=== PATIENT | female | born 1955 | race Caucasian/White ===

== ENCOUNTER 2020-04-06 03:28 | Emergency (ER) | payer BC, SELFPAY ==
--- NOTE | 2020-04-06 03:30 | XR_ITS ---
WS: [id number] RIGHT FOOT: 3 VIEW(S) TECHNIQUE: AP, oblique and lateral. HISTORY: injury COMPARISON: None available. Acute nondisplaced fracture through the posterior calcaneus. There is an additional oblique fracture through the distal fibula. Additional small avulsion fractures at the medial malleolus. Normal tarsal/metatarsal alignment. Extensive soft tissue edema around the hindfoot and ankle. XR/XR foot RT min 3V* [id number] IMPRESSION: 1. Nondisplaced oblique fracture distal fibula. 2. Nondisplaced fracture distal calcaneus and small avulsion fractures from th e medial malleolus.
[2020-04-06 03:33] VITALS: BP 135/86; PULSE 79; RESP 17; TEMP 36.7; O2SAT 97; BMI 33.3
--- NOTE | 2020-04-06 03:37 | XR_ITS ---
WS: [id number] RIGHT ANKLE: 3 VIEW(S) TECHNIQUE: AP, oblique(s) and lateral. HISTORY: injury COMPARISON: None available. Nondisplaced oblique fracture distal fibula with adjacent large amount of soft tissue edema. Tiny avu lsion fractures the medial malleolus. There is an additional lucency through the calcaneus which is p robably a fracture also. Small joint effusion. Mild widening of the ankle mortise. Extensive soft tissue edema. Small calcaneal spur with possible fracture through the base of the spur . XR/XR ankle RT min 3V* [id number] IMPRESSION: 1. Nondisplaced oblique fracture distal fibula. 2. Small avulsion fractures of medial malleolus. 3. Highly suspicious for calcaneal fracture. 4. Large amount of soft tissue edema surrounding the ankle. 5. Mild widening of the medial ankle mortise.
--- NOTE | 2020-04-06 03:40 | W.ED.EXTPRO ---
HPI - Extremity Problem General: Chief complaint: Extremity Injury, Lower Stated complaint: r foot injury Time Seen by Provider: 04/06/20 03:31 Source: patient Mode of arrival: ambulatory Limitations: no limitations History of Present Illness: HPI Narrative: 64-year-old female who states she was playing in [place] with her grandson yesterday at roughly 6 PM jumped out of the tube and twisted her ankle and felt a pop. She states she has had right lateral ankle pain since then. States the pain is worsened and is sharp. She has had swelling and is unable to bear weight. She has been icing it. Denies any knee pain. Denies any other injuries. MD Complaint: extremity pain Associated symptoms: Deny chest pain, fever(s) or rash Review of Systems Const: Denies: fever(s), chills, body aches or change in appetite Eyes: Denies: blurry vision or eye discomfort ENMT: Denies: throat pain or dental pain Card: Denies: chest pain Resp: Denies: dyspnea GI: Denies: abdominal pain, nausea, vomiting or diarrhea : Denies: dysuria Musc: Reports: joint pain and joint swelling Skin/Breast: Denies: rash Neuro: Denies: headache(s) Psych: Denies: depression Tereso/Lymph: Denies: easy bruising All/Imm: Denies: urticaria Physical Exam Const: COMMON NORMALS: no acute distress, patient oriented x3 and healthy appearing HENMT: COMMON NORMALS: normocephalic and atraumatic HEAD & SCALP: normocephalic and atraumatic Eye: COMMON NORMALS: Equal, round and reactive pupils present and EOMs intact bilaterally PUPIL: Yes Equal, round and reactive pupils present Neck/C-Spine: COMMON NORMALS: full ROM and supple Chest: COMMONS NORMALS: normal inspection of the chest and normal palpation of entire chest wall Resp: COMMON NORMALS: normal respiratory effort, No retractions, No use of accessory muscles and clear to auscultation bilaterally AUSCULTATION: clear to auscultation bilaterally Cardio: COMMON NORMALS: regular rate, regular rhythm and No murmurs present (Cardio) RATE: regular rate RHYTHM: regular rhythm GI: COMMON NORMALS: Normal to inspection, nondistended, normoactive bowel sounds present, Soft to palpation, non-tender and no masses PALPATION: Yes Soft to palpation Extremity: COMMON NORMALS: full ROM NARRATIVE EXTREMITY EXAM: tenderness and swelling to right lateral ankle Neuro: COMMON NORMALS: patient oriented x3, moves all extremities and no focal motor deficits Psych: COMMON NORMALS: mental status grossly normal, Normal thought process present and cooperative THOUGHT PROCESS: Normal thought process present Skin: COMMON NORMALS: no rashes or lesions noted and no wounds GENERAL SKIN EXAM: no rashes or lesions noted Course Vital Signs: Vital signs: Vital Signs Temperature 98.0 F 04/06/20 03:33 Pulse Rate 79 04/06/20 03:33 Respiratory Rate 17 04/06/20 03:33 Blood Pressure 135/86 04/06/20 03:33 Pulse Oximetry 97 04/06/20 03:33 MDM - Extremity (Nontraumatic) MDM Narrative: Medical decision making narrative: Patient presents with a distal fibula fracture to her ankle. Patient was placed in a splint and crutches. She is to follow-up with Dr. Vicente in 2 to 4 days and is to return if worsening. Imaging Data^: X-ray right ankle: Attestation: I personally reviewed and interpreted this imaging study as follows: My impression: Distal fibula fracture Discharge Plan Discharge Patient Disposition: Home, Self-Care Clinical Impression: Fracture of distal end of fibula Qualifiers: Encounter type: initial encounter Fracture type: closed Fracture morphology: other fracture Laterality: right Qualified Code(s): S82.831A - Other fracture of upper and lower end of right fibula, initial encounter for closed fracture Condition: Stable Prescriptions: [place] 5-325 mg tablet 1 tab PO Q6H PRN (Reason: pain) Qty: 14 RF: 0 Discharge Orders: Discharge Order (Routine); Ordered 04/06/20 Ordered By: Cata Melendez Referrals: Marcell Amaya DO [Primary Care Provider] - Amado Vicente DPM [Physician] - 1-3 days Discharge Diet: Advance as tolerated Discharge Activity: Resume usual activity Patient Instructions: Ankle Fracture (ED) Coding Level of Care Code ED Chief Specialist Leed for [facility]erg Fwd Exam Comprehensive
[2020-04-06] MEDS: HYDROcodone-acetaminophen 5-325 mg Tablet 1 TAB PO (03:49)
--- NOTE | 2020-04-06 08:45 | DCPLANNER ---
manager target had message to schedule a follow up appointment for patient with ortho. manager target called the ortho clinic, spoke with Mirian, gave clinic patients information. manager target was told that patients information would be printed and reviewed. Clinic will call patient with appointment information.
--- NOTE | 2020-04-07 12:11 | DCPLANNER ---
Patient had a follow up appointment scheduled for 04.07.20 with ortho. Patient did attend the appointment.
== END 2020-04-06 04:25 | disposition home or self-care (01) ==
PROVIDERS: Emergency Provider Emergency Medicine; PCP Electrodiagnostic Medicine
DX: S82.831A Other fracture of upper and lower end of right fibula, initial encounter for closed fracture (principal); X50.1XXA Overexertion from prolonged static or awkward postures, initial encounter
CPT/HCPCS: 12345; 29515; 73610; 73630; 99281; 99283

== ENCOUNTER 2020-04-07 11:27 | Outpatient (CLI) | payer BC, SELFPAY | END 2020-04-07 11:28 | disposition home or self-care (01) | LOC: SPT 11:30 | PROVIDERS: PCP Electrodiagnostic Medicine; Visit Provider Podiatrist Foot & Ankle Surgery | DX: Z47.89 Encounter for other orthopedic aftercare (principal); S82.891D Other fracture of right lower leg, subsequent encounter for closed fracture with routine healing; X58.XXXD Exposure to other specified factors, subsequent encounter | CPT/HCPCS: 97760; L4361 ==

== ENCOUNTER 2020-04-10 05:35 | Day surgery (SDC) | payer BC, SELFPAY ==
[2020-04-07 12:07] VITALS: BMI 33.3
--- NOTE | 2020-04-07 12:27 | P.ANESASSM_ITS ---
Pre-Anesthetic Assessment Pre-Anesthetic Assessment: Height/Weight: Height 1.65 m Weight 90.718 kg Preop Diagnosis: Right bimalleolar ankle fracture Proposed Procedure: Operation Date: 04/10/20 08:30 Proposed Procedures p ORIF bimalleolar Ankle 02822 S82.839A(Right) - Amado Vicente DPM Familial anesthetic complications: None Social: Social History: No alcohol and No tobacco Exam: Pre-Anes Outpt Exam: alert, oriented x 3, clear to auscultation sameera aterally and regular rate & rhythm Airway: Cervical ROM: WNL MP: 3 Dentition: Partials Pulmonary: Pulmonary: None reported CV/HEM: CV/HEM: HTN : : None reported Hepatic: Hepatic: None reported Musc/skel: Comments: L ankle fracture Neuropsych: Neuropsych: None reported Anesthetic Plan: ASA status: 2 Anesthesia: General and Regional (specify below) (popliteal) Risk of > 500 ml blood loss (7ml/kg in children): No PFSH Anesthesia PFSH: Family History (Updated 04/07/20 @ 10:22 by Simi Frances LPN) Father Diabetes Social History (Updated 04/07/20 @ 10:22 by Simi Frances LPN) Smoking and tobacco status: never smoked Alcohol intake: never Current occupational status: retired Female Reproductive History: Date of last menstrual period: 09/18/89 Data Anesthesia Cardiac Studies: No Data to Display
[2020-04-09 06:59] LABS: Coronavirus Lab Test PTC NOT DETECTED
--- NOTE | 2020-04-10 | SCC_ITS ---
1.7 seconds of fluoroscopic guidance, for a cumulative dose of 0.356 mGy, was provided to Dr. Vicente by the radiology department. C-arm images of the RIGHT ankle were saved for the patient's permanent record. [facility]
--- NOTE | 2020-04-10 | XR_ITS ---
WS: [id number] C-ARM RADIOGRAPHS RIGHT ANKLE; 3 IMAGES HISTORY: ORIF RIGHT BIMALLEOLAR ANKLE COMPARISON: 04/06/2020 Intraoperative fixation plate and screw distal fibula. Fibular fracture in good position and alignmen t. XR/XR ankle RT min 3V* [id number] IMPRESSION: Intraoperative ORIF distal fibular fracture.
[2020-04-10 05:42] VITALS: BP 117/86; PULSE 75; RESP 18; TEMP 36.4; O2SAT 97
[2020-04-10] MEDS: sodium chloride 0.9% 1,000 ML 30 ML IV (05:52)
--- NOTE | 2020-04-10 06:12 | W.PM.OPSUD ---
Surgery/Procedure H&P Update DATE OF PROCEDURE: April 10, 2020 DATE H&P PERFORMED: 04/07/20 H&P UPDATE INFORMATION: I have reviewed H&P completed within last 30 days, I have examined patient prior to procedure, No changes to prior documentation and H&P is in [facility] [place] on date indicated PREOP DIAGNOSIS: Right bimalleolar ankle fracture PLANNED PROCEDURE: Operation Date: 04/10/20 08:30 Proposed Procedures p ORIF bimalleolar Ankle 90794 S82.839A(Right) - Amado Vicente DPM
--- NOTE | 2020-04-10 06:46 | P.ANESUD_ITS ---
Pre-Anesthetic Update Pre-Anesthetic Assessment: Date of Surgery/Procedure: 04/10/20 Preop Concha gnosis: Right bimalleolar ankle fracture Proposed Procedure: Operation Date: 04/10/20 08:30 Proposed Procedures p ORIF bimalleolar Ankle 51701 S82.839A(Right) - Amado Vicente DPM Any changes to Pre-Anesthetic Assessment?: No Last Intake: Intake Last Liquid Date 04/10/20 Last Liquid Time 04:30 Last Solid Date 04/09/20 Last Solid Time 19:30 Labs Last 48hrs: Laboratory Results - last 48 hr 04/07/20 12:12 Nasal/Oral COVID-1 9 PCR Not detected Vitals: Temperature 97.6 F 04/10/20 05:42 Temperature Source Temporal Artery S can 04/10/20 05:42 Pulse Rate 75 04/10/20 05:42 Respiratory Rate 18 04/10/20 05:42 Blood Pressure 117/86 04/10/20 05:42 Blood Pressure Harmony n 96 04/10/20 05:42 Pulse Oximetry 97 04/10/20 05:42 Oxygen Delivery Me thod 04/10/20 05:42 Exam: Pre-Anes Outpt Exam: alert, oriented x 3, clear to auscultation bilaterally and regular rate & rhythm Cardiac Studies: No Data to Display
--- NOTE | 2020-04-10 06:46 | ANES.PROC ---
Anesthesia Procedures Procedure/Date: 04/10/20 Nerve Block ^: Nerve Block 1: Main Anesthesia: general anesthesia Time Out Performed: Yes Consent: requested by attending/covering physician, from patient, risks and benefits reviewed and patient agrees to proceed Nerve block location: popliteal (R) Anesthesia monitors applied: pulse oximetry and oxygen Anesthetic Used: ropivicaine 0.5% and with decadron (4 mg) Amount of anesthesia used (mL): 30 Ultrasound used to: recognize landmarks Nerve Stimulator Used?: No Interscalene/Femoral BLK: 4 stimuplex 21 g needle used for position and inplane approach, visualize local anesthetic spread and no vascular puncture identified Injection: neg aspiration of heme Patient Tolerated Procedure: well Complications: none
[2020-04-10] MEDS: midazolam 1 mg/mL INJ 2 mL 2 MG IVP (07:05)
[2020-04-10 08:08] VITALS: BP 111/77; PULSE 94; RESP 16; TEMP 36.8; O2SAT 100
[2020-04-10 08:15] VITALS: BP 116/75; PULSE 80; RESP 17; O2SAT 99
[2020-04-10 08:20] VITALS: BP 114/76; PULSE 83; RESP 15; TEMP 36.8; O2SAT 98
[2020-04-10 08:25] VITALS: BP 124/71; PULSE 77; RESP 16; TEMP 36.6; O2SAT 95
[2020-04-10 08:40] VITALS: BP 118/72; PULSE 78; RESP 16; TEMP 36.6; O2SAT 96
--- NOTE | 2020-04-10 15:51 | P.OP_ITS ---
Operative Report Date of procedure: April 10, 2020 Pre-op Diagnosis: Right bimalleolar ankle fracture Post-op diagnosis: same Post-op Findings: Right bimalleolar ankle fracture equivalent. Procedure Done: Open reduction internal fixation right bimalleolar ankle fracture CPT code 23667 Implants: 2-0 Vicryl. 4-0 Vicryl. Skin ismael. Eddie anatomical fibular plate. Total of 8 Eddie cortical screws. Pathology: none sent Surgeon: Amado Vicente D.P.M. Senior Ui Web Developer: Ami Martínez Jesse Anesthesia: General Estimated blood loss: Less than 10 mL Tourniquet time: See intraoperative documentation. IV fluids: None Urine output: None Complications: None Findings: Sukhjinder Parsons B fracture right fibula with avulsion fracture on the medial malleolus. No syndesmotic disruption appreciated with cotton hook test. Condition: stable Disposition: PACU Brief History: Patient is a pleasant 64-year-old female sustained a right bimalleolar ankle fracture inversion twisting type fall. Sukhjinder Parsons B fracture with medial gutter widening recommended anatomical reduction and open fixation of a fibular fractur. Patient is agreeable. I discussed benefits of surgery allowing anatomical reduction with rigid internal fixation and early range of motion of her ankle fracture. Risks include pain, bleeding, numbness, infection, bruising, swelling, surgical site dehiscence, hardware failure, delayed union, malunion, DVT, PE, heart attack, stroke. Also there is a high likelihood of posttraumatic arthritis in the future to her right ankle with or without surgery. Patient is agreeable and wishes to proceed. Procedure: Under mild sedation the patient was brought to the operating room and placed on the operating table in supine position. A timeout was performed. Anesthesia started by the anesthesia service. Preoperatively popliteal block was performed per anesthesia service. Once anesthesia had been induced a saphenous nerve block utilizing 0.5% Marcaine plain 5 cc at the right distal leg. A well-padded pneumatic tourniquet was applied high calf to the patient's right lower extremity. The right lower extremity was then scrubbed, prepped utilizing normal aseptic technique. Attention was directed to the lateral aspect of the right ankle, the lateral malleolus was palpated and identified as well as the fibular shaft. Through skin with dissection carried down bluntly utilizing curved Gamez scissors down to the level of periosteum. Care was taken to retract and preserve neurovascular and tendinous structures. All bleeders were ligated and cauterized as necessary. Periosteal incision was made to be left from the distal approximately. Oblique fracture was appreciated and distracted this was evacuated of its hematoma with a bone curette and flushed with saline solution. Realizing traction bone reduction tenaculums the fracture was reduced out to length, reduction was performed in all 3 cardinal planes and noted to be adequate for early held utilizing the bone point to point forceps. Next utilizing standard AO technique anatomical fibular plate was utilized to fixate the fracture with excellent bony plate interface, total of 8 screws were utilized combination of locking and nonlocking with 4 screws distal and 4 screws proximal to the fracture. Temporary fixation was removed. Intraoperative fluoroscopy confirmed placement of orthopedic hardware and reduction of fibular fracture in the AP view, mortise view and lateral views. Incision site was flushed with copious amounts of sterile saline solution. Periosteum was closed utilizing 2-0 Vicryl. 4-0 Vicryl reapproximated with ismael. Incision site was dressed with Adaptic 4 x 4's Kerlix wrap. Deflated and a prompt hyperemic response was noted to the distal digits of the right foot. Patient tolerated the procedure well and was transferred to the PACU with vital signs stable and vascular status intact. Also a cam boot was applied with ankle in neutral position. Following a period of postoperative monitoring she will be discharged home strict nonweightbearing the right lower extremity. She has a knee scooter. He was given instructions dressings clean, dry and intact and elevate her right foot while at rest. Will have a follow-up at 9:30 AM April 17, 2020 for nursing visit and dressing change. Prescribed Percocet 10/325 mg to be taken judiciously as needed every 4 hours for pain total of 30 tablets dispensed to her pharmacy in [facility]. Contact me with postoperative questions or concerns.
== END 2020-04-10 09:00 | disposition home or self-care (01) ==
PROVIDERS: PCP Electrodiagnostic Medicine; Visit Provider Podiatrist Foot & Ankle Surgery
PROC: (CPT 27814; principal; 2020-04-10 07:00)
DX: S82.841A Displaced bimalleolar fracture of right lower leg, initial encounter for closed fracture (principal); X50.1XXA Overexertion from prolonged static or awkward postures, initial encounter; I10 Essential (primary) hypertension; Z79.891 Long term (current) use of opiate analgesic
CPT/HCPCS: 27814; 12345; 73610; 76000; 87635; 96374; C1713; J0690; J1100; J2250; J2704; J2795; J3010; J3490; J7030

== ENCOUNTER → 2020-04-30 13:31 | Outpatient (BNVA) | payer BC, SELFPAY | PROVIDERS: PCP Electrodiagnostic Medicine; Visit Provider Podiatrist Foot & Ankle Surgery | DX: Z48.89 Encounter for other specified surgical aftercare (principal) | CPT/HCPCS: 73610 ==

== ENCOUNTER → 2020-05-21 14:24 | Outpatient (BNVA) | payer BC, SELFPAY | PROVIDERS: PCP Electrodiagnostic Medicine; Visit Provider Podiatrist Foot & Ankle Surgery | DX: Z47.89 Encounter for other orthopedic aftercare (principal); S82.841D Displaced bimalleolar fracture of right lower leg, subsequent encounter for closed fracture with routine healing; W19.XXXD Unspecified fall, subsequent encounter | CPT/HCPCS: 73610 ==

== ENCOUNTER → 2025-02-11 10:43 | Outpatient (BNVA) | payer MEDICARE, SELFPAY | PROVIDERS: PCP Nurse Practitioner Family; Visit Provider Orthopaedic Surgery | DX: S46.212A Strain of muscle, fascia and tendon of other parts of biceps, left arm, initial encounter (principal); X50.0XXA Overexertion from strenuous movement or load, initial encounter | CPT/HCPCS: 99204 ==

== ENCOUNTER 2025-02-12 16:30 | Outpatient (CLI) | payer MEDICARE, SELFPAY ==
--- NOTE | 2025-02-12 16:45 | MR_ITS ---
WS: [id number] MRI LEFT SHOULDER NONCONTRAST TECHNIQUE: Sagittal T2, coronal T1, T2 and proton density imaging. Axial gradient PDE imaging. CLINICAL INFORMATION: Possible bicep tendon rupture COMPARISON: None. FINDINGS: Advanced arthritis AC joint fluid and edema. Mild synovial thickening. Small amount of subacromial subdeltoid fluid. Moderate narrowing of the subacromial space with downsloping of the type II acromion. Subacromial spurring with impingement on the rotator cuff. Chronic thinning of the supraspinatus and infraspinatus. Tendinopathy supraspinatus and infraspinatus. Small partial interstitial tears involving the distal supraspinatus and infraspinatus. No tendon retraction. Tiny insertional tear infraspinatus. Normal teres minor. Biceps tendon is absent from the bicipital groove. Subscapularis tendon appears intact. Small amount of subcoracoid fluid. Small intra-articular biceps tendon. MR/MR shoulder LT wo con* [id number] IMPRESSION: 1. Advanced arthritis AC joint with moderate narrowing of the subacromial spac e. Impingement on the distal supraspinatus and infraspinatus with subacromial s purring. 2. Chronic thinning of the supraspinatus and infraspinatus with small intersti tial tears and tendinopathy. No tendon retraction. Small insertional tear infra spinatus. 3. Teres minor and subscapularis appear intact. 4. Biceps tendon is absent from the bicipital groove presumably chronically to rn. Small intra-articular biceps tendon..
== END 2025-02-12 16:31 | disposition home or self-care (01) ==
PROVIDERS: PCP Nurse Practitioner Family; Visit Provider Orthopaedic Surgery
DX: S46.212A Strain of muscle, fascia and tendon of other parts of biceps, left arm, initial encounter (principal); M19.012 Primary osteoarthritis, left shoulder; M75.42 Impingement syndrome of left shoulder; M75.102 Unspecified rotator cuff tear or rupture of left shoulder, not specified as traumatic; M67.814 Other specified disorders of tendon, left shoulder; X58.XXXA Exposure to other specified factors, initial encounter; R93.7 Abnormal findings on diagnostic imaging of other parts of musculoskeletal system
CPT/HCPCS: 73221

== ENCOUNTER → 2025-02-14 08:08 | Outpatient (BNVA) | payer MEDICARE, SELFPAY | PROVIDERS: PCP Nurse Practitioner Family; Visit Provider Orthopaedic Surgery | DX: S46.212A Strain of muscle, fascia and tendon of other parts of biceps, left arm, initial encounter (principal); M75.102 Unspecified rotator cuff tear or rupture of left shoulder, not specified as traumatic; M12.812 Other specific arthropathies, not elsewhere classified, left shoulder; X58.XXXA Exposure to other specified factors, initial encounter | CPT/HCPCS: 99213 ==

== ENCOUNTER 2025-02-17 09:42 | Outpatient (CLI) | payer MEDICARE, SELFPAY ==
--- NOTE | 2025-02-17 09:50 | USCV_ITS ---
Ludmila Arvizu Age: 69 Gender: F : 1955 Exam Date: 02/17/2025 10:21 Ordering Phys: Minna Zhang APRN, APRN Technologist: LADI [place] [facility] [place]: Cardiomegaly BP: 111 / 63 HR: 82 Rhythm: Sinus Technical Quality: Adequate MEASUREMENTS (Male / Female) Normal Values 2D ECHO LV Diastolic Diameter PLAX 6.0 cm 4.2 - 5.9 / 3.9 - 5.3 cm IVS Diastolic Thickness 0.7 cm 0.6 - 1.0 / 0.6 - 0.9 cm IVS Systolic Thickness 0.9 cm LVPW Diastolic Thickness 1.2 cm 0.6 - 1.0 / 0.6 - 0.9 cm LVPW Systolic Thickness 1.8 cm LVOT Diameter 2.0 cm LV Ejection Fraction 2D Teich 45.1 % LV Ejection Fraction MOD 4C 50.4 % LV Ejection Fraction MOD 2C 34.1 % LV Ejection Fraction 2C AL 34.6 % LA Diameter 4.0 cm RA Systolic Volume 4C AL 39.4 ml RA Systolic Volume 4C MOD 38.9 ml LA Sys Volume AL 74.4 cm cubed LA Sys Volume Index AL 38.9 cm cubed/m squared Aorta at Sinotubular Diameter 2.6 cm IVC Diameter 1.8 cm M-MODE LA Ao Ratio MM 1.6 AV Cusp Separation MM 1.9 cm DOPPLER AV Peak Velocity 105.0 cm/s LVOT Peak Velocity 84.0 cm/s AV Area Cont Eq vti 2.4 cm squared AV Area Cont Eq pk 2.6 cm squared MV Peak Velocity 91.0 cm/s MV Area PHT 5.2 cm squared Mitral E to A Ratio 0.7 TR Peak Velocity 75.0 cm/s TR Peak Gradient 2.3 mmHg TV Peak E Velocity 66.0 cm/s PV Peak Velocity 107.0 cm/s FINDINGS Left Ventricle Left ventricle is dilated. LV systolic function is moderately reduced with EF of 35 - 40%. Moderate global hypokinesis. Grade 1 diastolic dysfunction Right Ventricle Normal in size and function Right Atrium Normal in size Left Atrium Dilated Mitral Valve Structurally normal mitral valve. Trace mitral regurgitation Aortic Valve Structurally normal aortic valve. No significant stenosis or regurgitation Tricuspid Valve Insufficient TR jet to evaluate RVSP. Pulmonic Valve Not well visualized Pericardium Small pericardial effusion. Aorta Normal in size IVC Not well visualized CONCLUSIONS Left ventricle is dilated. LV systolic function is moderately reduced with EF of 35 to 40%. Grade 1 diastolic dysfunction. Left atrial dilation. Trace mitral regurgitation No comparison studies are available. Tristin Fuentes MD (Electronically Signed) Final Date: 18 February 2025 09:07 S
== END 2025-02-17 09:43 | disposition home or self-care (01) ==
PROVIDERS: PCP Nurse Practitioner Family; Visit Provider Nurse Practitioner Family
DX: I51.7 Cardiomegaly (principal); R93.1 Abnormal findings on diagnostic imaging of heart and coronary circulation; I31.39 Other pericardial effusion (noninflammatory)
CPT/HCPCS: 93306

== ENCOUNTER → 2025-02-18 15:55 | Outpatient (BNVA) | payer MEDICARE, SELFPAY | PROVIDERS: PCP Nurse Practitioner Family; Referring Provider Orthopaedic Surgery; Visit Provider Internal Medicine | DX: Z01.818 Encounter for other preprocedural examination (principal); S46.219A Strain of muscle, fascia and tendon of other parts of biceps, unspecified arm, initial encounter; Y99.9 Unspecified external cause status; I11.0 Hypertensive heart disease with heart failure; I50.9 Heart failure, unspecified; Z87.891 Personal history of nicotine dependence; R07.9 Chest pain, unspecified | CPT/HCPCS: 93005; 99204 ==

== ENCOUNTER 2025-02-19 09:43 | Day surgery (SDC) | payer MEDICARE, SELFPAY ==
[2025-02-19] VITALS (12 sets, daily range): BP systolic 111–141; BP diastolic 60–102; PULSE 56–95; RESP 16–18; TEMP 36.1–36.6; O2SAT 92–100; BMI 27.4
[2025-02-19] MEDS: sodium chloride 0.9% 1,000 ML 30 ML IV (10:20)
--- NOTE | 2025-02-19 11:56 | ANES.PROC ---
Anesthesia Procedures Procedure/Date: 02/19/25 Nerve Block ^: Nerve Block 1: Main Anesthesia: other (100mcg fentanyl) Time Out Performed: Yes Consent: requested by attending/covering physician and from patient Nerve block location: interscalene Anesthesia monitors applied: pulse oximetry, EKG, BP cuff and oxygen Nerve block position: supine Anesthetic Used: ropivicaine 0.5% Amount of anesthesia used (mL): 25 Ultrasound used to: recognize landmarks Nerve Stimulator Used?: Yes Interscalene/Femoral BLK: other needle (pjunk 4inch) Injection: neg aspiration of heme Patient Tolerated Procedure: well Complications: none Additional Comments: decadron 4mg added to block
--- NOTE | 2025-02-19 11:58 | W.PM.OPSUD ---
Surgery/Procedure H&P Update DATE OF PROCEDURE: February 19, 2025 DATE H&P PERFORMED: 02/14/25 H&P UPDATE INFORMATION: I have reviewed H&P completed within last 30 days, I have examined patient prior to procedure and No changes to prior documentation PREOP DIAGNOSIS: Ruptured left biceps tendon PLANNED PROCEDURE: Operation Date: 02/19/25 11:30 Proposed Procedures p Biceps Tendon Repair(Left) - Jason Bettencourt MD s POSSIBLE Rotator Cuff Repair - Open(Left) - Jason Bettencourt MD s Left Shoulder Acromioplasty(Left) - Jason Bettencourt MD
--- NOTE | 2025-02-19 12:10 | PC.NURSE ---
1149- time out done for block. 25 ml ropivicaine used. pt monitored during procedure. pt mary well
[2025-02-19] MEDS: ceFAZolin 2,000 mg SDV 2000 MG IVP (12:38)
--- NOTE | 2025-02-19 13:51 | ANES.PREANE2 ---
Pre-Anesthetic Assessment Height/Weight: Height 5 ft 6 in Weight 170 lb Temp Pulse Resp BP Pulse Ox O2 Del Method 97 F L 56 L 18 125/101 96 Room Air 02/19/25 10:09 02/19/25 10:09 02/19/25 10:09 02/19/25 10:09 02/19/25 10:09 02/19/25 10:30 Preop Diagnosis: Ruptured left biceps tendon Operation Date: 02/19/25 11:30 Proposed Procedures p Biceps Tendon Repair(Left) - Jason Bettencourt MD s POSSIBLE Rotator Cuff Repair - Open(Left) - Jason Bettencourt MD s Left Shoulder Acromioplasty(Left) - Jason Bettencourt MD Was Beta Cynthia taken within 24 hours: N/A Was Clonidine taken within 24 hours: N/A Last intake: Intake Last Liquid Date 02/18/25 Last Liquid Time 22:00 Last Solid Date 02/18/25 Last Solid Time 17:00 Social No alcohol and No tobacco Exam alert, oriented x 3, clear to auscultation bilaterally and regular rate & rhythm Airway Submandibular: within normal limits Cervical ROM: within normal limits Mallampati: Class III Anesthetic Plan ASA status: 3 Anesthesia: Regional (specify below) Other: No prior issues with anesthesia NPO since yesterday evening Patient has a CHF history, EF of 35 to 40%. Patient states that she gets around well without shortness of breath. Able to climb 2 flights of stairs Patient is on lisinopril for hypertension Plan for general anesthesia with preop nerve block Medications/Allergies Home Medications ?Medication ?Instructions ?Recorded ?Confirmed ?Last Taken ?Type lisinopril 5 mg tablet 5 mg PO DAILY 04/07/20 02/18/25 02/18/25 History nitroglycerin 0.4 mg sublingual 4 mg sublingual DIRECTED PRN 04/07/20 02/18/25 Unknown History tablet (Nitrostat) Chest Pain Allergies Allergy/AdvReac Type Severity Reaction Status Date / Time No Known Allergies Allergy Verified 02/18/25 16:06 Current Medications Generic Name Dose Route Start Last Admin Trade Name Freq PRN Reason Stop Dose Admin Sodium Chloride 1,000 mls @ 30 mls/hr 02/19/25 10:00 02/19/25 10:20 Sodium Chloride 0.9% IV 02/20/25 09:59 30 mls/hr .Q24H DEXTER Administration PFSH Anesthesia Medical History (Updated 02/18/25 @ 16:52 by Tristin Fuentes M.D) Accelerated essential hypertension Surgical History Hx of total knee replacement Hx of appendectomy Hx of kidney removal H/O rotator cuff surgery Family History Father Diabetes Social History Smoking and tobacco/nicotine status: former use of tobacco/nicotine Alcohol intake: never Current occupational status: retired Data Anesthesia Cardiac Studies: Echocardiogram 02/17/25
--- NOTE | 2025-02-19 14:39 | PM.OP ---
Operative Report Date of procedure: February 19, 2025 Surgeon: Jason Bettencourt MD Procedure: Preoperative diagnosis: Ruptured left proximal biceps tendon degenerative changes of the rotator cuff Postoperative diagnosis: Degenerative tearing labrum and inner aspect of the rotator cuff, ruptured biceps tendon proximally Procedure: Diagnostic left shoulder arthroscopy with debridement of the labrum and rotator cuff. Biceps tendon retrieval and anchoring to anterior proximal humerus. Surgeon: Jason Bettencourt MD Engine Dynamometer Tester: LANEY Collins's assistance was necessary for positioning the patient, assisting during the procedure, wound closure, dressing placement, and transfer the patient to the PACU Anesthesia: General With preoperative scalene block EBL: 50 cc Indications: Ludmila is a 69-year-old white female approximately 2 to 3 weeks ago was moving some lumber when she felt a stabbing pain in her arm. She had more pain the following morning. Then she started noticing deformity of her biceps on the left. She is seen to my office within a week's time of this. Clinical exam is consistent with ruptured proximal biceps tendon. Subsequent MRI was obtained demonstrating that it was ruptured. Therefore at this time she is offered surgical evaluation of the shoulder as well as repair of the biceps tendon. There is also noted some wear with the rotator cuff true tears yet. All risk benefits treatment alternatives were discussed with her and she is agreeable to proceed with surgical intervention. Procedure: After obtaining written consent the patient had scalene block administered to the left shoulder in the preop holding area. Patient then taken to the operating room placed on the operating table in supine position and general anesthetic was administered. Once good anesthesia was achieved patient was placed up in the beachchair position. She was secured to the bed well and padded well. Left shoulder and arm were prepped and draped in usual fashion. After surgical timeout standard portal was made with a #11 blade on the posterior aspect of her shoulder. Camera cannulas placed within the glenohumeral joint from here. Anterior working portal was also made just inferior to the clavicle. Initially noted there is shredding of the biceps tendon there is approximately 2 to 3 cm frayed arm biceps tendon within the self. This was debrided down to the base of the biceps tendon with mechanical shaver. There is degenerative tearing of the labrum that was debrided down to stable cartilaginous base with mechanical shaver. It is noted that there is some fraying on the inner surface of the rotator cuff but no through and through tear. This too is debrided with mechanical shaver. At this point arthroscopy was discontinued. Anterior incision was made over the shoulder on a standard anterior approach. Sharp dissect taken on down to subcutaneous tissues electrocautery used for hemostasis. Blunt and sharp dissection using Metzenbaum scissors dissection down to find the the cephalic vein was done. Once this was done cephalic vein was retracted superior laterally with the deltoid and pectoralis major was retracted inferiorly medially. Self-retaining retractors were used for this. Not expose down to the fascia over the humerus. By palpation bicipital groove was identified and fascia was divided over this longitudinally along the course of the proximal portion. Exploring this area and found there was no evidence of any biceps tendon. Further digital dissection and feeling down below the pectoralis major insertion of the humerus there is still no evidence of tendon or muscle. A secondary incision made all the way down over the main belly of the biceps electrocautery is for hemostasis. Digital palpation finally identified the of the tendon stump. This is brought out through the distal incision and held onto it with Allis clamp. By digital palpation all adhesions were broken up and removed from the biceps musculature. Tendon was then passed subcutaneously up to the upper incision and regain control with an Allis clamp. At this point a 2.9 juggernaut anchor was placed just superior to the top edge of the insertion of the pectoralis major in the bicipital groove. This is double armed. Subsequently 2 of the sutures were passed down posterior to the pectoralis major. They were then sewn through the proximal biceps tendon stump and then sutures passed up to the bicipital groove back up above the pectoralis major. By pulling on the sutures stump of the biceps could be brought up to the upper edge of the pectoralis major. The suture is also sewn through this tendon in a weave type fashion. Both of these were tied down to the bone anchoring the biceps tendon well. Once this was achieved elbow range of motion found to be stable. Wounds were washed with copious amounts of sterile irrigation. Subcutaneous tissue reapproximated 0 Vicryl interrupted sutures. Skin was closed with skin ismael. Wounds were cleaned and dried and dressed with appropriate dressings. Patient was placed in a posterior splint with hand supinated and elbow flexed greater than 90 degrees. Freedom wrap for compression. Patient then placed in arm sling and transferred to cover room stable condition
[2025-02-19] MEDS: fentaNYL 50 mcg/mL INJ 2mL 100 MCG (15:20)
[2025-02-19] MEDS: HYDROcodone-acetaminophen 5-325 mg Tablet 1 TAB PO (16:16)
== END 2025-02-19 16:55 | disposition home or self-care (01) ==
PROVIDERS: PCP Nurse Practitioner Family; Visit Provider Orthopaedic Surgery
PROC: (CPT 23430; principal; 2025-02-19 11:10)
DX: S46.212A Strain of muscle, fascia and tendon of other parts of biceps, left arm, initial encounter (principal); S43.492A Other sprain of left shoulder joint, initial encounter; X58.XXXA Exposure to other specified factors, initial encounter; I11.0 Hypertensive heart disease with heart failure; I50.9 Heart failure, unspecified; M75.112 Incomplete rotator cuff tear or rupture of left shoulder, not specified as traumatic; M12.812 Other specific arthropathies, not elsewhere classified, left shoulder; M75.42 Impingement syndrome of left shoulder; Z79.899 Other long term (current) drug therapy; Z87.891 Personal history of nicotine dependence; Z79.82 Long term (current) use of aspirin
CPT/HCPCS: 29828; 29822; C1713; J0690; J1100; J2371; J2405; J2704; J3010; J3490; J7030; J9999

== ENCOUNTER 2025-03-03 11:26 | Outpatient (CLI) | payer MEDICARE, SELFPAY | END 2025-03-03 11:27 | disposition home or self-care (01) | LOC: SPT 11:27 | PROVIDERS: PCP Nurse Practitioner Family; Visit Provider Orthopaedic Surgery | DX: Z47.89 Encounter for other orthopedic aftercare (principal); S46.212D Strain of muscle, fascia and tendon of other parts of biceps, left arm, subsequent encounter; X58.XXXD Exposure to other specified factors, subsequent encounter; Z98.890 Other specified postprocedural states | CPT/HCPCS: 99024; L3761 ==

== ENCOUNTER → 2025-03-17 08:37 | Outpatient (BNVA) | payer MEDICARE, SELFPAY | PROVIDERS: PCP Nurse Practitioner Family; Visit Provider Orthopaedic Surgery | DX: S46.212D Strain of muscle, fascia and tendon of other parts of biceps, left arm, subsequent encounter (principal); M75.102 Unspecified rotator cuff tear or rupture of left shoulder, not specified as traumatic; M12.812 Other specific arthropathies, not elsewhere classified, left shoulder; Z98.890 Other specified postprocedural states; X58.XXXD Exposure to other specified factors, subsequent encounter | CPT/HCPCS: 99024 ==

== ENCOUNTER → 2025-04-03 13:13 | Outpatient (BNVA) | payer MEDICARE, SELFPAY | PROVIDERS: PCP Nurse Practitioner Family; Visit Provider Internal Medicine | DX: I11.0 Hypertensive heart disease with heart failure (principal); I50.9 Heart failure, unspecified; Z87.891 Personal history of nicotine dependence | CPT/HCPCS: 99214 ==

== ENCOUNTER 2025-04-08 08:39 | Outpatient (CLI) | payer MEDICARE, SELFPAY ==
[2025-04-08 09:25] LABS: Hematocrit 38.1 % (36-47); Hemoglobin 12.20 g/dL (11.27-16.99); Mean Corpuscular HGB Conc 32.0 g/dL (30-55); Mean Corpuscular Hemoglobin 29.7 pg (27-33); Mean Corpuscular Volume 92.7 fl (85-98); Nucleated Red Blood Cells % 0 %; Platelet Count 306 10^3/cmm (157-399); Red Blood Count 4.11 10^6/uL (3.85-5.65); White Blood Count 3.79 10^3/uL (3.29-11.43)
[2025-04-08 09:40] LABS: INR 0.95 (0.83-1.21)
[2025-04-08 09:44] LABS: Anion Gap 15.6 (5-19); Blood Urea Nitrogen 28 mg/dL (8-23); Calcium 9.3 mg/dL (8.5-10.5); Carbon Dioxide 26 mmol/L (22-29); Chloride 102 mmol/L (98-107); Glucose 97 mg/dL (65-115); Osmolality Calculated 295 mOsm/kg (285-295); Potassium 3.6 mmol/L (3.5-5.1); Sodium 140 mmol/L (136-145)
== END 2025-04-08 08:40 | disposition home or self-care (01) ==
PROVIDERS: PCP Nurse Practitioner Family; Visit Provider Internal Medicine
DX: I50.9 Heart failure, unspecified (principal); I10 Essential (primary) hypertension; R58 Hemorrhage, not elsewhere classified
CPT/HCPCS: 36415; 80048; 85025; 85610

== ENCOUNTER → 2025-04-14 08:01 | Outpatient (BNVA) | payer MEDICARE, SELFPAY | PROVIDERS: PCP Nurse Practitioner Family; Visit Provider Orthopaedic Surgery | DX: M75.102 Unspecified rotator cuff tear or rupture of left shoulder, not specified as traumatic (principal); M12.812 Other specific arthropathies, not elsewhere classified, left shoulder; Z98.890 Other specified postprocedural states | CPT/HCPCS: 99024 ==

== ENCOUNTER 2025-04-17 05:43 | Outpatient (CLI) | payer MEDICARE, SELFPAY ==
[2025-04-17] VITALS (35 sets, daily range): BP systolic 127–184; BP diastolic 76–125; PULSE 70–99; RESP 16–32; TEMP 36.1–36.7; O2SAT 72–98; BMI 27.2
--- NOTE | 2025-04-17 06:15 | PC.NURSE ---
IV fluids 250ml NS IV bolus started at this time. Fluids to resume at 100ml/hr after bolus per Dr. Fuentes verbal orders.
[2025-04-17 06:43] LABS: Anion Gap 14.3 (5-19); Blood Urea Nitrogen 17 mg/dL (8-23); Calcium 8.9 mg/dL (8.5-10.5); Carbon Dioxide 29 mmol/L (22-29); Chloride 102 mmol/L (98-107); Creatinine Clr Calc Pharmacy 47.5737; Glucose 106 mg/dL (65-115); Osmolality Calculated 296 mOsm/kg (285-295); Potassium 3.3 mmol/L (3.5-5.1); Sodium 142 mmol/L (136-145)
--- NOTE | 2025-04-17 09:00 | XACV_ITS ---
Exam Room: 2 Ht: 168 cm Wt: 77 kg BSA: 1.91 m2 Gender: Female : 1955 Any Known Allergies: No known allergies Exam Priority: Routine Procedure(s): Procedure Description: Diagnostic procedure Procedure Description: PCI procedure Procedure Description: Coronary IVUS Procedure Description: Drug Eluting Coronary Stent Procedure Description: PTCA Procedure Description: Miscellaneous Procedure Description: ACT Procedure Description: Coronary Angiography Diagnostic Cath Status: Elective Diagnostic Findings * Left Main has no significant disease. * Circumflex has no significant disease. * Right Coronary Artery has no significant disease. * Proximal Left Anterior Descending: severe 70-80% stenosis, LAZARUS: 3 flow. * INDICATION: LV dysfunction/ Congestive heart failure. * Coronary angiography shows right dominance. PCI Status: Elective PCI Indication: Other Interventional Findings * Proximal Left Anterior Descendin-80% stenosis treated with a AB TREK 4.00X12 RX BALLOON, SANDRA Steward TAPAN 4.0X18 VERNON, and MDHumaira COLLINS EUPHORA RX 4.52T77CI BALLOON. 0% residual stenosis, LAZARUS: 3 flow. * Procedure detail: We engaged left main artery with XB 3.0 guide catheter. IV heparin was administered to maintain anticoagulation. Run-through wire was used to cross the stenosis and was put in distal LAD. Stenosis was predilated with 4.0 x 12 mm semicompliant balloon. This was followed by IVUS to size the stent. We placed 4.0 x 18 mm resolute [place] drug-eluting stent. Stent was postdilated with 4.5 x 8 mm NC balloon. At this time final angiogram was performed that showed excellent stent expansion, no residual stenosis and LAZARUS-3 flow. Guidewire and guide catheter were removed. Patient left the Painter Ordnance in a stable condition.. PCI for Multi-vessel Disease: Yes Conclusions 1. Severe proximal LAD stenosis s/p PCI with 1 stent. 2. Proximal Left Anterior Descending was treated with a Balloon, Drug Eluting Stent, and Balloon. Recommendations * Dual antiplatelet therapy with aspirin and plavix. * High intensity statin therapy. * Outpatient cardiology follow up in 2 weeks. Interventional RX Recommendation: PCI w/o planned CABG Diagnostic RX Recommendation: PCI w/o planned CABG Anticoagulation: Heparin Pressures Phase:Rest AO : 130 / 104 ( 118 ) @ 10:27:00 AM 129 / 87 ( 108 ) @ 10:39:00 AM 143 / 103 ( 123 ) @ 10:50:00 AM Clinical Evaluation EBL: 5mL-10mL Procedural Details Procedure Consent Obtained. Pre-Procedure Time Out. Identified patient by full name and date of as verbalized by the patient/guarantor. Does the consent match the physician's order: Yes. Accurate & Complete Informed Consent: Yes. Inpatient/Outpatient History & Physical on Chart: Yes. If H&P is completed, is and addenduem needed: No. Visualize and Verify Site with Patient/Guarantor: N/A. Relevant Radiology Images available: Yes. The risks, benefits, and alternatives of sedation and/or procedure were discussed by physician. The patient agrees to continue. Procedure started. HA Clinical Fraility Score: 3: Managing Well. Painter Ordnance Indications: LV Dysfunction. Chest Pain Symptom Assessment: Atypical Angina. Cardiovascular Instability: No. Correct patient, site and procedure confirmed by cath team. PERRLA. Strong, equal hand treating machine operator bilaterally. Lungs clear x 5 lobes. IV Site on Arrival: 20 gauge in the right anticubital. IV Fluids: 0.9% NaCl at KVO. 300 mL infused prior to clinical laboratory assistant. Pre Procedural Pulses: bilateral dorsalis pedis was 3+. Pre Procedural Pulses: bilateral posterior tibial was 2+. Pre Procedural Pulses: bilateral radial was 3+. Oxygen started at 2liters/min via nasal canula. right groin was prepped with chloroprep then draped in the usual sterile fashion. right radial was prepped with chloroprep then draped in the usual sterile fashion. Physician notified. Baseline sample Acquired. HR: 83 BPM. Patient's family in CPRU room #3. Dr. Fuentes will update at the completion of the procedure. Equipment: 6F - Radial. Cardiac Cath Pack. ACIST Manifold Kit Model BT 2000. Heparinized Saline (2 units/mL), 1000 mL bag. Physician arrived. Physician scrubbed in. Immediate Pre-Procedure Time Out. Correct Patient: Yes; Correct Procedure: Yes; Correct Site: Yes; Correct Patient Position: Yes; Correct Supplies: Yes; Dried Flammable Prep: Yes; Blood Products Available: N/A. Lidocaine 1% infiltrated to the right radial. Arterial access obtained. A 5 wolof TIG catheter in over the exchange J wire. Multiple views taken of left coronary artery. Catheter redirected to the RCA. Multiple views taken of right coronary artery. Catheter removed over the exchange J wire. PCI Indication: CAD (without ischemic symptoms). 6 wolof XB 3 guide catheter was inserted over the exchange J wire. Runthrough guidewire was advanced through the guide catheter to lesion in the prox LAD. Inflation number : 1 A AB TREK 4.00X12 RX BALLOON was prepped and advanced across the Prox LAD , then inflated to 6 GUILLE for 0:09 seconds. Inflation number: 2 The AB TREK 4.00X12 RX BALLOON was reinflated across the Prox LAD, to 6 GUILLE for 0:08 seconds. Inflation number: 3 The AB TREK 4.00X12 RX BALLOON was reinflated across the Prox LAD, to 6 GUILLE for 0:08 seconds. Inflation number: 4 The AB TREK 4.00X12 RX BALLOON was reinflated across the Prox LAD, to 8 GUILLE for 0:11 seconds. Balloon out. IVUS catheter in OTW. IVUS of the Proximal LAD performed. IVUS catheter out OTW. Inflation Number : 5 Billy Steward TAPAN 4.0X18 VERNON -Lot Number# [id number] Exp. was prepped and advanced across the Prox LAD. The stent was deployed at 12 GUILLE for 0:15 seconds. Stent balloon out over wire. Results checked. IVUS catheter in OTW. IVUS of the Proximal LAD performed. IVUS catheter out OTW. Inflation number : 6 A MDT NC EUPHORA RX [id number] BALLOON was prepped and advanced across the Prox LAD , then inflated to 16 GUILLE for 0:13 seconds. Inflation number: 7 The MDT NC EUPHORA RX 4.95Q07GF BALLOON was reinflated across the Prox LAD, to 18 GUILLE for 0:10 seconds. Inflation number: 8 The MDT NC EUPHORA RX 4.99A94PR BALLOON was reinflated across the Prox LAD, to 18 GUILLE for 0:09 seconds. Balloon out. ACT drawn. Results 312 seconds. Therapeutic limits - pre-heparin administration 90-150 seconds and monitoring heparin during a vascular procedure >250 seconds. Results checked. Results checked. Wire out. Guide catheter out over the exchange J wire. Physician scrubbed out. A TR Band was successful obtaining hemostatsis at the Right Radial artery insertion site. Post Procedure: Pulses reassessed and unchanged. PERRLA. Strong, equal hand treating machine operator bilaterally. No VTE prophylaxis required. Medication's Wasted: Lidocaine 1% = 18 mL. Medication's Wasted: Nitro = 49.4 mg. Medication's Wasted: Heparin = 3000 units. Medication's Wasted: Other = Versed 1 mg. Medication's Wasted: Other = Fentnayl 50 mcg. Total IV fluids: 100 mL. Post-op diagnosis: Severe Prox LAD stenosis s/p VERNON x 1. PCI Indication: CAD (without ischemic symptoms). Complications: none. Estimated blood loss: 5mL-10mL. Responsiveness - Normal response to verbal stimuli; alert and oriented, PERRLA. Airway - Unaffected, no intervention required; spontaneous ventilation. Circulation: W/N/L, pulses unchanged. Nausea/Vomiting: No. Procedure completed. Patient transferred by bed to CPRU. Vital chart was stopped. Access Site Site: Right Radial artery Sheath Size: 6 Fr Hemostasis Method: TR Band Hemostasis Success: Successful Procedure Medications Start: 9:20 AM Stop: 9:20 AM Medication: Versed Amount: 1 mg Route: I.V. Start: 9:20 AM Stop: 9:20 AM Medication: Fentanyl Amount: 50 mcg Route: I.V. Start: 9:22 AM Stop: 9:22 AM Medication: Nitrogylcerin Amount: 100 mcg Route: I.A. Start: 9:24 AM Stop: 9:24 AM Medication: Heparin Amount: 5000 units Route: I.V. Start: 9:30 AM Stop: 9:30 AM Medication: Nitrogylcerin Amount: 200 mcg Route: I.A. Start: 9:31 AM Stop: 9:31 AM Medication: Heparin Amount: 3000 units Route: I.V. Start: 9:48 AM Stop: 9:48 AM Medication: Nitrogylcerin Amount: 200 mcg Route: I.A. Start: 9:52 AM Stop: 9:52 AM Medication: Plavix Amount: 600 mg Route: P.O. I, the attending physician, have reviewed and verified all procedure medications. Yes, all medications given per verbal order History/Risk Factors Hypertension: Yes Dyslipidemia: No Peripheral Arterial Disease (PAD): No Myocardial Infarction (NC): No Obesity: No Renal Disease: No Tobacco Use: Former Prior Interventions PCI: No CABG: No Valve Surgery: No Report Signatures Finalized by Tristin Fuentes MD on 04/17/2025 10:12 AM
--- NOTE | 2025-04-17 09:17 | W.PM.OPSUD ---
Surgery/Procedure H&P Update DATE OF PROCEDURE: April 17, 2025 DATE H&P PERFORMED: 04/03/25 H&P UPDATE INFORMATION: I have reviewed H&P completed within last 30 days, I have examined patient prior to procedure and No changes to prior documentation PREOP DIAGNOSIS: LV dysfunction/ congestive heart failure PRIMARY INDICATION FOR PROCEDURE: LV dysfunction/ congestive heart failure PLANNED PROCEDURE: Operation Date: 04/17/25 10:00 Proposed Procedures p Cardiac Catheterization - [facility] w/wo LV & Coros(Left) - Tristin Fuentes M.D Possible percutaneous coronary intervention PATIENT REASSESSED PRIOR TO SEDATION, WITH NO CHANGE NOTED: Yes PHYSICAL EXAM: alert, oriented x 3, clear to auscultation bilaterally and regular rate & rhythm AIRWAY EVAL/ANESTHESIA PLAN: normal airway, ASA III, Local Anesthesia, Risks, benefits & alternatives of sedation and/or procedure discussed and Patient agrees to continue as planned ADDITIONAL INFORMATION: Moderate sedation
[2025-04-17] MEDS: hyDRALAzine 20 mg/mL INJ 1 mL 10 MG IVP (10:34)
--- NOTE | 2025-04-17 12:24 | PC.NURSE ---
Patient received from wharf laborer s/p [facility] with PCI to LAD. Patient ambulated to bathroom and had some increases SOB with chest discomfort. Rina Enriquez NP in to see patient. Received verbal orders for EKG and lasix (see orders). Patient has TR band in place to right wrist. No s/s of bleeding or hematoma formation observed. Instruction provided regarding site care and restrictions. Patient verbalized understanding.
--- NOTE | 2025-04-17 12:37 | ECG_ITS ---
[employer] [facility] Date: 2025-04-17 Pat Name: Ludmila Arvizu Department: Room: 102 Gender: Female [employer]: : 1955 Requested By: Rina Enriquez Order Number: [id number] Reading MD: HANNA AMARAL Measurements Intervals Cylinder Rate: 78 P: 57 RI: 140 QRS: -2 QRSD: 93 T: 52 QT: 390 QTc: 447 Interpretive Statements SINUS RHYTHM WITH OCCASIONAL SUPRAVENTRICULAR PREMATURE COMPLEXES NONSPECIFIC T-WAVE ABNORMALITY Compared to ECG 02/18/2025 16:00:33 T-wave abnormality now present Ventricular premature complex(es) no longer present Electronically Signed On 04-17-2025 22:18:09 CDT by HANNA AMARAL [email or web address]
--- NOTE | 2025-04-17 12:38 | PC.NURSE ---
Hydralazine not given per Alfredo. Nitro drip instead
[2025-04-17] MEDS: nitroglycerin drip 50 MG/250 ML PREMIX IV (12:40)
[2025-04-17] MEDS: FUROsemide 10 mg/mL SDV 4mL 40 MG IVP (12:40)
[2025-04-17] MEDS: fentaNYL 50 mcg/mL INJ 2mL IVP (13:39)
--- NOTE | 2025-04-17 13:45 | PC.NURSE ---
Fentnyl given as ordered for severe headache and elevated BP per Rina Enriquez NP verbal.
--- NOTE | 2025-04-17 15:12 | PC.NURSE ---
15min checks to tr band and BP continue. No s/s of bleeding or hematoma formation observed. BP gradually improving. Rina Enriquez NP is aware.
--- NOTE | 2025-04-17 17:46 | PC.NURSE ---
continued 15min checks. BP continues to improve. Patient denies pain. TR band air removal almost complete. No s/s of bleeding or hematoma formation observed. Reinforced instruction regarding site care. Patient verbalized complete understanding.
--- NOTE | 2025-04-17 18:13 | PC.NURSE ---
TR band removed at this time. Covered Site with 2x2 and coban. No s/s of bleeding or hematoma formation observed.
[2025-04-18 00:13] VITALS: BP 143/97; PULSE 79; RESP 30; O2SAT 97
[2025-04-18 00:16] VITALS: TEMP 36.9
[2025-04-18 04:06] LABS: Hematocrit 37.2 % (36-47); Hemoglobin 12.40 g/dL (11.27-16.99); Mean Corpuscular HGB Conc 33.3 g/dL (30-55); Mean Corpuscular Hemoglobin 30.2 pg (27-33); Mean Corpuscular Volume 90.5 fl (85-98); Nucleated Red Blood Cells % 0 %; Platelet Count 271 10^3/cmm (157-399); Red Blood Count 4.11 10^6/uL (3.85-5.65); White Blood Count 5.48 10^3/uL (3.29-11.43)
[2025-04-18 04:17] VITALS: BP 144/81; PULSE 71; RESP 24; O2SAT 95
[2025-04-18 04:27] LABS: Anion Gap 15.1 (5-19); Blood Urea Nitrogen 20 mg/dL (8-23); Calcium 8.6 mg/dL (8.5-10.5); Carbon Dioxide 26 mmol/L (22-29); Chloride 100 mmol/L (98-107); Creatinine Clr Calc Pharmacy 40.7774; Glucose 123 mg/dL (65-115); Osmolality Calculated 288 mOsm/kg (285-295); Potassium 4.1 mmol/L (3.5-5.1); Sodium 137 mmol/L (136-145)
[2025-04-18 07:38] VITALS: BP 140/97; PULSE 88; RESP 20; TEMP 36.8; O2SAT 96
--- NOTE | 2025-04-18 09:15 | PM.DCS ---
Discharge Providers Date of Admission: 04/17/2025 Date of Discharge: April 18, 2025 Attending Provider at Admission: Tristin Fuentes M.D Attending Provider at Discharge: Tristin Fuentes M.D Primary Care Provider: Maris Cronin Reason for Visit Reason for Visit: I50.9 Brief History: 69-year-old woman with past medical history of hypertension, systolic CHF with LVEF 35 to 40% was discovered during preoperative evaluation for bicep tendon surgery. Workup of the heart failure was deferred until after the surgery. Hospital Course Hospital Course She was brought in for coronary angiogram today due to LV dysfunction on echocardiogram, which revealed proximal LAD 70 to 80% stenosis which was treated with balloon angioplasty and VERNON x 1. She developed flash pulmonary edema when she returned to cardiac stepdown, required a dose of Lasix 40 mg IV, nitroglycerin infusion and a short period of time with BiPAP. When she had diuresed, shortness of breath improved and blood pressure returned to normal. She was taken off the nitroglycerin in the night. On exam this morning she is feeling well with no chest pain, no shortness of breath, no lower extremity edema. No complications with right radial cath site. She has been instructed on appropriate use of medications, to not miss even 1 dose of aspirin or Plavix. She should have BMP drawn on Monday to recheck creatinine, at discharge is 1.4. Will send her home with as needed Lasix for symptoms of volume overload and shortness of breath. Follow-up with cardiology clinic in 7 to 10 days. Physical Exam Const: COMMON NORMALS: no acute distress and patient oriented x3 GENERAL APPEARANCE: cooperative ORIENTATION/CONSCIOUSNESS: Yes awake, Yes oriented to person, Yes oriented to place and Yes oriented to time Chest: COMMONS NORMALS: normal inspection of the chest and normal palpation of entire chest wall CHEST: Yes Symmetrical chest wall rise Resp: COMMON NORMALS: normal respiratory effort, No retractions, No use of accessory muscles and clear to auscultation bilaterally AUSCULTATION: clear to auscultation bilaterally Cardio: COMMON NORMALS: regular rate, regular rhythm, S1 normal heart sound present, S2 normal heart sound present, No gallops present (Cardio), No clicks present (Cardio), No murmurs present (Cardio) and No rub (Cardio) RATE: regular rate RHYTHM: regular rhythm HEART SOUNDS: S1 normal heart sound present and S2 normal heart sound present PERIPHERAL PULSES: radial pulses present positive right 2+ and femoral pulses present positive right 2+ Neuro: COMMON NORMALS: patient oriented x3 and moves all extremities SENSORIUM/ORIENTATION: Yes oriented to person, Yes oriented to place and Yes oriented to time Skin: WOUNDS: Yes surgical site (no hematoma palpable) Details: no odor Discharge Data Studies Completed and Pending Completed Studies During Hospitalization Category Date Time Status CHEF SAUCIER request for service Routine Exams 04/17/25 09:00 Completed Laboratory Results WBC 5.48 10^3/uL (3.29-11.43) 04/18/25 03:50 RBC 4.11 10^6/uL (3.85-5.65) 04/18/25 03:50 Hgb 12.40 g/dL (11.27-16.99) 04/18/25 03:50 Hct 37.2 % (36-47) 04/18/25 03:50 MCV 90.5 fl (85-98) 04/18/25 03:50 MCH 30.2 pg (27-33) 04/18/25 03:50 MCHC 33.3 g/dL (30-55) 04/18/25 03:50 RDW 13.4 % (12.1-15.1) 04/18/25 03:50 Plt Count 271 10^3/cmm (157-399) 04/18/25 03:50 MPV 9.3 fL (7.4-10.4) 04/18/25 03:50 Neut % (Auto) 61.8 % 04/18/25 03:50 Lymph % (Auto) 21.5 % 04/18/25 03:50 [place] % (Auto) 12.0 % 04/18/25 03:50 Eos % (Auto) 3.8 % 04/18/25 03:50 Baso % (Auto) 0.7 % 04/18/25 03:50 Neut # (Auto) 3.38 10^3/uL (1.8-7.7) 04/18/25 03:50 Lymph # (Auto) 1.2 10^3/uL (0.8-4.8) 04/18/25 03:50 [place] # (Auto) 0.7 10^3/uL (0.2-0.9) 04/18/25 03:50 Eos # (Auto) 0.2 10^3/uL (0.0-0.8) 04/18/25 03:50 Baso # (Auto) 0.0 10^3/uL (0.0-0.1) 04/18/25 03:50 Nucleated RBC % (auto) 0 % 04/18/25 03:50 Nucleated RBCs # 0.0 /100WBC 04/18/25 03:50 Sodium 137 mmol/L (136-145) 04/18/25 03:50 Potassium 4.1 mmol/L (3.5-5.1) 04/18/25 03:50 Chloride 100 mmol/L (98-107) 04/18/25 03:50 Carbon Dioxide 26 mmol/L (22-29) 04/18/25 03:50 Anion Gap 15.1 (5-19) 04/18/25 03:50 BUN 20 mg/dL (8-23) 04/18/25 03:50 Creatinine 1.4 mg/dL (0.5-0.9) H 04/18/25 03:50 GFR Calculation 37.5 mL/min (90-130) L 04/18/25 03:50 Glucose 123 mg/dL (65-115) H 04/18/25 03:50 Calculated Osmolality 288 mOsm/kg (285-295) 04/18/25 03:50 Calcium 8.6 mg/dL (8.5-10.5) 04/18/25 03:50 Vitals Last Vital Signs Temp 98.2 F 04/18/25 07:38 Pulse 88 04/18/25 07:38 Resp 20 H 04/18/25 07:38 BP 140/97 04/18/25 07:38 Pulse Ox 96 04/18/25 07:38 O2 Del Method Room Air 04/18/25 07:38 FiO2 21 04/17/25 14:45 Discharge Plan Discharge Patient Disposition: Home Prescriptions: New aspirin 81 mg Tablet,Delayed Release (Dr/Ec) 81 mg PO DAILY Qty: 90 3RF clopidogrel 75 mg Tablet 75 mg PO DAILY Qty: 90 3RF Continued (DME) Hinged elbow brace See Rx Instructions .Route .MEDSUPPLY Qty: 1 0RF Rx Instructions: As directed nitroglycerin [Nitrostat] 0.4 mg tablet, sublingual 4 mg sublingual DIRECTED PRN (Reason: Chest Pain) Held lisinopril 2.5 mg tablet 2.5 mg PO DAILY Qty: 90 3RF Hold Instructions: Resume on 04/21/25. Discharge Order = DC NOW: Discharge Order (Routine); Ordered 04/18/25 Ordered By: Rina Enriquez Other Ambulatory Orders: Basic Metabolic Panel (Routine) Timeframe: 3 Days Facility: [facility] - Location: Lab - Main Lab Ordered By: Rina Enriquez Referrals: Hortencia Pacheco NP [Nurse Practitioner, Cardiology] - 04/29/25 2:00 pm Maris Cronin [Primary Care Provider, ENGINE ROOM OPERATOR] - 04/22/25 1:30 pm Patient Instructions: Coronary Artery Disease (DC), Coronary Angioplasty (DC), CHF Stoplight, Post Angiogram Home Care Instructions Print Language: Ecuadorean Discharge Date/Time: 04/18/25 10:17 Discharge Attestations Time Spent in Discharge Care*: less than 30 min Quality Metrics Clinical Quality Measures [ No reported AMI, CVA or VTE this stay] Coding Level of Care Code Acute Code for Chg Fwvadim
== END 2025-04-18 10:17 | disposition home or self-care (01) ==
LOC: CCL 05:46 → CSU 12:08
PROVIDERS: Nurse Practitioner Family; PCP Nurse Practitioner Family; Visit Provider Internal Medicine
DX: I25.10 Atherosclerotic heart disease of native coronary artery without angina pectoris (principal); Z87.891 Personal history of nicotine dependence; I50.20 Unspecified systolic (congestive) heart failure; I11.0 Hypertensive heart disease with heart failure; J81.0 Acute pulmonary edema
CPT/HCPCS: 36415; 80048; 85025; 85347; 92978; 93005; 93454; 94660; 96360; 96361; 99152; 99153; C1725; C1753; C1769; C1874; C1887; C1894; C9600; J0360; J1644; J1938; J2250; J3010; J3490; J7030; J9999; Q0163; Q9967

== ENCOUNTER 2025-04-21 11:45 | Outpatient (CLI) | payer MEDICARE, SELFPAY ==
[2025-04-21 13:10] LABS: Anion Gap 12.1 (5-19); Blood Urea Nitrogen 20 mg/dL (8-23); Calcium 9.5 mg/dL (8.5-10.5); Carbon Dioxide 27 mmol/L (22-29); Chloride 105 mmol/L (98-107); Glucose 111 mg/dL (65-115); Osmolality Calculated 293 mOsm/kg (285-295); Potassium 4.1 mmol/L (3.5-5.1); Sodium 140 mmol/L (136-145)
== END 2025-04-21 11:46 | disposition home or self-care (01) ==
PROVIDERS: PCP Nurse Practitioner Family; Visit Provider Nurse Practitioner Family
DX: I50.9 Heart failure, unspecified (principal)
CPT/HCPCS: 36415; 80048

== ENCOUNTER → 2025-04-29 13:45 | Outpatient (BNVA) | payer MEDICARE, SELFPAY | PROVIDERS: PCP Nurse Practitioner Family; Visit Provider Nurse Practitioner Family | DX: I11.0 Hypertensive heart disease with heart failure (principal); I50.9 Heart failure, unspecified; I25.10 Atherosclerotic heart disease of native coronary artery without angina pectoris; I49.3 Ventricular premature depolarization; I95.1 Orthostatic hypotension; Z79.02 Long term (current) use of antithrombotics/antiplatelets; Z79.82 Long term (current) use of aspirin; Z95.5 Presence of coronary angioplasty implant and graft; Z87.891 Personal history of nicotine dependence; I10 Essential (primary) hypertension | CPT/HCPCS: 99214 ==

== ENCOUNTER 2025-05-12 07:07 | Outpatient (CLI) | payer MEDICARE, SELFPAY ==
[2025-05-12 07:58] LABS: Hematocrit 36.8 % (36-47); Hemoglobin 11.70 g/dL (11.27-16.99); Mean Corpuscular HGB Conc 31.8 g/dL (30-55); Mean Corpuscular Hemoglobin 29.8 pg (27-33); Mean Corpuscular Volume 93.6 fl (85-98); Nucleated Red Blood Cells % 0 %; Platelet Count 286 10^3/cmm (157-399); Red Blood Count 3.93 10^6/uL (3.85-5.65); White Blood Count 3.11 10^3/uL (3.29-11.43)
[2025-05-12 08:04] LABS: Anion Gap 14.2 (5-19); Blood Urea Nitrogen 19 mg/dL (8-23); Calcium 9.4 mg/dL (8.5-10.5); Carbon Dioxide 29 mmol/L (22-29); Chloride 104 mmol/L (98-107); Glucose 145 mg/dL (65-115); Magnesium 2.1 mg/dL (1.7-2.3); Osmolality Calculated 301 mOsm/kg (285-295); Potassium 4.2 mmol/L (3.5-5.1); Sodium 143 mmol/L (136-145)
== END 2025-05-12 07:08 | disposition home or self-care (01) ==
PROVIDERS: PCP Nurse Practitioner Family; Visit Provider Nurse Practitioner Family
DX: I10 Essential (primary) hypertension (principal)
CPT/HCPCS: 36415; 80048; 83735; 85025

== ENCOUNTER → 2025-07-30 12:25 | Outpatient (BNVA) | payer MEDICARE, SELFPAY | PROVIDERS: PCP Nurse Practitioner Family; Visit Provider Internal Medicine | DX: I25.10 Atherosclerotic heart disease of native coronary artery without angina pectoris (principal); I11.0 Hypertensive heart disease with heart failure; I50.9 Heart failure, unspecified; Z87.891 Personal history of nicotine dependence | CPT/HCPCS: 99214 ==